=== PATIENT | female | born 1955 | race Caucasian/White ===

== ENCOUNTER 2020-12-21 15:04 | Outpatient (CLI) | payer MEDICARE, SELFPAY ==
--- NOTE | ~2020-12-21 | MM_ITS ---
EXAMINATION: MM screening heydi BI w matthew HISTORY: Screening mammogram TECHNIQUE: Craniocaudal and mediolateral oblique 3-D tomosynthesis images were obtained and synthetic 2-D images were generated. CAD analysis was submitted and interpreted. COMPARISON: 05/10/2019, 05/04/2018, 10/31/2015 bilateral digital screening mammogram examinations BREAST PARENCHYMAL COMPOSITION: The breasts are heterogeneously dense, which may obscure small masses . FINDINGS: Occasional benign calcifications. There is no evidence of suspicious mass, calcification, o r architectural distortion to suggest malignancy in either breast. There has been no suspicious inter erasmo change. IMPRESSION: 1. No mammographic evidence of malignancy. 2. Recommend routine screening mammography in one year. BI-RADS Category 2: Benign finding(s). Reviewed, dictated and finalized at location A.
== END 2020-12-21 15:05 | disposition home or self-care (01) ==
PROVIDERS: PCP Family Medicine; Visit Provider Obstetrics & Gynecology
DX: Z12.31 Encounter for screening mammogram for malignant neoplasm of breast (principal)
CPT/HCPCS: 77063; 77067

== ENCOUNTER 2021-02-15 03:09 | Day surgery (SDC) | payer MEDICARE, SELFPAY ==
[2021-02-01 13:39] VITALS: BMI 34.4
--- NOTE | 2021-02-15 08:23 | WPDANESEPPF ---
Anes - Initial Pre Proc Eval Procedure: Operation Date: 02/15/21 09:30 Proposed Procedures p Screening Colonoscopy - Horace Garner MD Date/Time: 02/15/21 08:23 Surgeon: Horace Garner MD Pre Op Diagnosis: family hx of colon ca Patient Data Age: 65 Gender: F Height: 1.63 m Weight: 91 kg Allergies Allergy/AdvReac Type Severity Reaction Status Date / Time No Known Allergies Allergy Verified 02/15/21 09:06 Home Medications Medication Instructions Recorded Confirmed Type quinapril 10 mg tablet 10 mg PO DAILY #90 tablet 05/07/20 02/01/21 Rx ergocalciferol (vitamin D2) 1,250 1,250 mcg PO WEEKLY #12 cap 12/13/20 02/01/21 Rx mcg (50,000 unit) capsule Saccharomyces boulardii 250 mg 250 mg PO BID 12/24/20 02/01/21 History capsule mometasone-formoterol HFA 200 2 puff INHALATION BID #1 device 01/17/21 02/01/21 Rx mcg-5 mcg/actuation aerosol inhaler albuterol sulfate 90 mcg/actuation 1 inh INHALATION Q4H PRN #8.5 g 01/18/21 02/01/21 Rx aerosol inhaler Patient hx anesthesia problems: none Family hx anesthesia problems: none PMFSH Past Medical History Medical History (Updated 02/15/21 @ 08:25 by Froylan Bee MD) Allergic rhinitis Asthma Family history of coronary artery disease GERD (gastroesophageal reflux disease) Hypertension Normal colonoscopy (~2013) Obesity (BMI 30-39.9) Smoker Tobacco abuse, in remission Surgical History Surgical History History of colposcopy History of esophagogastroduodenoscopy (EGD) [place] teeth removed Family History Family History Mother Carcinoma of colon Breast cancer Father Carcinoma of colon Lung cancer Other Hypertension Social History Social History Smoking status: Current some day smoker Tobacco type: cigarettes Second hand tobacco smoke exposure: No Alcohol intake: current Alcohol use details: rarely Substance use: never Substance use type: does not use Living arrangements: alone Gender identity (if verbalized by the patient): Female Spiritual care concerns: No Agree to blood products: No Anes - Eval Final PreProcedure Day of Procedure 02/15/21 08:23 Patient weight: obese Heart: regular rate and rhythm Lungs: clear to auscultation and normal air movement Airway: Mallampati scale class II Neurological: alert and oriented Last oral intake: >/= 8 hours ASA classification: III Emergent: no Anesthetic plan: proceed Anesthesia type and monitoring: general GIVS Informed Consent: The patient's anesthetic plan and its attendant risks and benefits were discussed with the patient/family/POA. Questions were solicited and answers provided to the satisfaction of the patient/family/POA.
[2021-02-15 09:07] VITALS: BP 149/76; PULSE 76; RESP 14; TEMP 36.1; O2SAT 99
[2021-02-15] MEDS: LACTATED RINGERS 1,000 ML 150 ML IV CONT (09:24)
--- NOTE | 2021-02-15 09:40 | WPDGICN ---
Assessment and Plan Assessment and plan (1) FH: colon cancer: Code(s): Z80.0 - Family history of malignant neoplasm of digestive organs Status: Acute Assessment and Plan: Patient has family history of colon cancer in both mother and father. Plan is for screening colonoscopy now in this should be considered at 5 year intervals in the future. GI Consult Note Consult date/time: 02/15/21 09:40 HPI: Mirtha Bajwa is a 65 year old female Presents for screening colonoscopy. Patient states that her current weight appetite bowel movements are normal. Patient denies abdominal pain. She has had no bleeding. Family history is significant both mother and father have had colon cancer. Patient presents today for screening examination last exam was 6 years ago. Review of Systems Review of Systems: All systems reviewed & are unremarkable except as noted in HPI and below PMFSH Past Medical History Medical History (Updated 02/15/21 @ 08:25 by Froylan Bee MD) Allergic rhinitis Asthma Family history of coronary artery disease GERD (gastroesophageal reflux disease) Hypertension Normal colonoscopy (~2013) Obesity (BMI 30-39.9) Smoker Tobacco abuse, in remission Surgical History Surgical History History of colposcopy History of esophagogastroduodenoscopy (EGD) [place] teeth removed Family History Family History Mother Carcinoma of colon Breast cancer Father Carcinoma of colon Lung cancer Other Hypertension Social History Social History Smoking status: Current some day smoker Tobacco type: cigarettes Second hand tobacco smoke exposure: No Alcohol intake: current Alcohol use details: rarely Substance use: never Substance use type: does not use Living arrangements: alone Gender identity (if verbalized by the patient): Female Spiritual care concerns: No Agree to blood products: No Meds Home Medications and Allergies Home Medications Medication Instructions Recorded Confirmed Type quinapril 10 mg tablet 10 mg PO DAILY #90 tablet 05/07/20 02/15/21 Rx ergocalciferol (vitamin D2) 1,250 1,250 mcg PO WEEKLY #12 cap 12/13/20 02/15/21 Rx mcg (50,000 unit) capsule Saccharomyces boulardii 250 mg 250 mg PO BID 12/24/20 02/15/21 History capsule mometasone-formoterol HFA 200 2 puff INHALATION BID #1 device 01/17/21 02/15/21 Rx mcg-5 mcg/actuation aerosol inhaler albuterol sulfate 90 mcg/actuation 1 inh INHALATION Q4H PRN #8.5 g 01/18/21 02/15/21 Rx aerosol inhaler Allergies Allergy/AdvReac Type Severity Reaction Status Date / Time No Known Allergies Allergy Verified 02/15/21 09:06 Vital Signs Vital Signs - 24 hr 02/15/21 09:07 Temperature 97.0 F L Pulse Rate 76 Respiratory Rate 14 Blood Pressure 149/76 H Pulse Oximetry 99 Exam Narrative: Physical exam reveals patient be alert. Vital signs stable. HEENT exam is unremarkable. Patient is anicteric. Lungs are clear to auscultation and percussion. Heart is without murmur or extra sounds. Abdominal exam bowel sounds are present soft nontender with no organomegaly. Digital external rectal exam is normal.
[2021-02-15 10:11] VITALS: BP 91/64; PULSE 85; RESP 19; O2SAT 98
[2021-02-15 10:21] VITALS: BP 120/77; PULSE 86; RESP 20; O2SAT 100
[2021-02-15 10:31] VITALS: BP 140/83; PULSE 79; RESP 19; O2SAT 99
== END 2021-02-15 10:47 | disposition home or self-care (01) ==
PROVIDERS: PCP Family Medicine; Visit Provider Internal Medicine Gastroenterology
PROC: 0DJD8ZZ Inspection of Lower Intestinal Tract, Via Natural or Artificial Opening Endoscopic (ICD-10-PCS; CPT 45378; principal; 2021-02-15 09:30)
DX: Z12.11 Encounter for screening for malignant neoplasm of colon (principal); K57.30 Diverticulosis of large intestine without perforation or abscess without bleeding; K64.8 Other hemorrhoids; K21.9 Gastro-esophageal reflux disease without esophagitis; J45.909 Unspecified asthma, uncomplicated; I10 Essential (primary) hypertension; E66.9 Obesity, unspecified; F17.201 Nicotine dependence, unspecified, in remission; Z80.0 Family history of malignant neoplasm of digestive organs
CPT/HCPCS: G0105; J2704; J7120

== ENCOUNTER 2021-06-05 09:48 | Outpatient (CLI) | payer MEDICARE, SELFPAY ==
--- NOTE | ~2021-06-05 | DEXA_ITS ---
Bone Density Report Name: Mirtha Bajwa Age: 65 Sex: Female Ethnicity: White Date of : 1955 Indication: postmenopausal; parental hip fracture; height loss; Referring Provider: NORMA ARBOLEDA Study: Bone densitometry was performed. Exam Date: June 05, 2021 Accession number: [id number] Bone Density: Region BMD T-score Z-score Classification AP Spine (L1-L4) 0.965 -0.7 1.2 Normal Femoral Neck (Left) 0.669 -1.6 0.0 Osteopenia Total Hip (Left) 0.799 -1.2 0.2 Osteopenia Total Hip Bilateral Avg 0.784 -1.3 0.1 Osteopenia Femoral Neck (Right) 0.678 -1.5 0.1 Osteopenia Total Hip (Right) 0.768 -1.4 -0.1 Osteopenia World Health Organization criteria for BMD impression classify patients as: Normal (T-score at or above -1.0), Osteopenia (T-score between -1.0 and -2.5), or Osteoporosis (T-score at or below -2.5). 10-year Fracture Risk(1): Major Osteoporotic Fracture 15% Hip Fracture 1.7% Reported Risk Factors: [place] (), Neck BMD=0.669, BMI=38.8, parental fracture (1) FRAX(R) Version 3.08. Fracture probability calculated for an untreated patient. Fracture probability may be lower if the patient has received treatment. Previous Exams: Region Exam Age BMD T-score BMD Change BMD Change Date g/cm2 vs Baseline vs Previous AP Spine(L1-L4) 06/05/2021 65 0.965 -0.7 -0.116(-10.8%) -0.076(-7.3%)# 05/20/2019 63 1.041 -0.1 -0.040(-3.7%)# 0.021(2.1%) 11/08/2015 60 1.020 -0.2 -0.061(-5.6%)# -0.061(-5.6%)# 02/18/2010 54 1.081 0.3 Total Hip(Left) 06/05/2021 65 0.799 -1.2 -0.083(-9.4%)# -0.046(-5.5%)# 05/20/2019 63 0.845 -0.8 -0.037(-4.2%)# -0.032(-3.7%)* 11/08/2015 60 0.878 -0.5 -0.004(-0.5%)# -0.004(-0.5%)# 02/18/2010 54 0.882 -0.5 Total Hip(Right) 06/05/2021 65 0.768 -1.4 -0.049(-6.0%)# -0.049(-6.0%)# 05/20/2019 63 0.816 -1.0 0.000(0.0%)# -0.021(-2.5%) 11/08/2015 60 0.837 -0.9 0.021(2.5%)# 0.021(2.5%)# 02/18/2010 54 0.816 -1.0 *Denotes significance at 95% confidence level, LSC for AP Spine = 0.022 g/cm2, LSC for Total Hip = 0.027 g/cm2 Clinical Information Provided by Patient: Parent has had a hip fracture Has used the following medications: Vitamin D Patient maximum height was 66 Menopause Age: 50 No regular weight bearing exercise Drinks caffeinated beverages Onset of menses at age 10 Number of children 0 Impression: The patient has low bone mass,
== END 2021-06-05 09:49 | disposition home or self-care (01) ==
LOC: ANHIMG 09:50
PROVIDERS: PCP Family Medicine; Visit Provider Obstetrics & Gynecology
DX: Z78.0 Asymptomatic menopausal state (principal); M85.852 Other specified disorders of bone density and structure, left thigh; M85.851 Other specified disorders of bone density and structure, right thigh
CPT/HCPCS: 77080

== ENCOUNTER 2022-03-13 14:23 | Outpatient (CLI) | payer MEDICARE, SELFPAY ==
--- NOTE | ~2022-03-13 | MM_ITS ---
EXAMINATION: MM screening heydi BI w matthew HISTORY: Screening mammogram, family history of breast cancer in her mother. TECHNIQUE: Craniocaudal and mediolateral oblique 3-D tomosynthesis images were obtained and synthetic 2-D images were generated. CAD analysis was submitted and interpreted. COMPARISON: 12/21/2020, 05/10/2019, 05/04/2018 BREAST PARENCHYMAL COMPOSITION: The breasts are heterogeneously dense, which may obscure small masses . FINDINGS: Scattered benign-appearing calcifications are present. There is no suspicious mass, calcifi cation, or architectural distortion to suggest malignancy in either breast. There has been no suspici ous interval change. IMPRESSION: 1. No mammographic evidence of malignancy. 2. Recommend routine screening mammography in one year. BI-RADS Category 2: Benign finding(s). Reviewed, dictated and finalized at location A.
== END 2022-03-13 14:24 | disposition home or self-care (01) ==
PROVIDERS: PCP Family Medicine; Visit Provider Physician Assistant
DX: Z12.31 Encounter for screening mammogram for malignant neoplasm of breast (principal)
CPT/HCPCS: 77063; 77067

== ENCOUNTER → 2022-07-11 09:43 | Outpatient (CLI) | payer MEDICARE, SELFPAY ==
--- NOTE | ~2022-07-11 | XR_ITS ---
Lumbosacral Spine: AP and lateral views Clinical History: Pain Findings: The normal lordotic curve is maintained. No fracture identified. Grade 1 anterolisthesis of L4 over L5 measures 6 mm. There is advanced degenerative disc narrowing at L4-L5 and L5-S1. There ar e diffuse facet joint degenerative changes in the lumbar spine. The sacroiliac joints are normally ou tlined. Impression: 6 mm anterolisthesis of L4 over L5. Additional degenerative changes, as above. Reviewed, dictated and finalized at location M. [facility] [employer] Impression: 6 mm anterolisthesis of L4 over L5. Additional degenerative changes, as above.
--- NOTE | ~2022-07-11 | XR_ITS ---
AP view of the pelvis and AP and lateral views of the right hip Clinical history: Pain Findings: No acute fracture or dislocation is seen. There is moderate degenerative change of the righ t hip joint with joint space narrowing and mild osteophyte formation. Left hip joint space is preserv ed. Soft tissues are unremarkable. Impression: Moderate left hip joint osteoarthritis. Reviewed, dictated and finalized at location . [employer] Impression: Moderate left hip joint osteoarthritis.
== END ==
PROVIDERS: PCP Family Medicine; Visit Provider Physician Assistant Medical
DX: M16.0 Bilateral primary osteoarthritis of hip (principal)
CPT/HCPCS: 72100; 73502

== ENCOUNTER 2023-09-11 13:18 | Outpatient (CLI) | payer MEDICARE, SELFPAY ==
--- NOTE | ~2023-09-11 | DEXA_ITS ---
Bone Density Report Name: JAHAIRA GARCIA Age: 68 Sex: Female Ethnicity: White Date of : 1955 Indication: osteopenia; parental hip fracture; height loss; postmenopausal Referring Provider: LINCOLN HOOKER Study: Bone densitometry was performed. Exam Date: September 11, 2023 Accession number: [id number] Bone Density: Region BMD T-score Z-score Classification AP Spine(L1-L4) 1.046 0.0 2.1 Normal Femoral Neck (Left) 0.633 -1.9 -0.1 Osteopenia Total Hip (Left) 0.799 -1.2 0.3 Osteopenia World Health Organization criteria for BMD impression classify patients as: Normal (T-score at or above -1.0), Osteopenia (T-score between -1.0 and -2.5), or Osteoporosis (T-score at or below -2.5). 10-year Fracture Risk(1): Major Osteoporotic Fracture 16% Hip Fracture 3.7% Reported Risk Factors: [place] (), Neck BMD=0.633, BMI=39.0, parental fracture (1) FRAX(R) Version 3.08. Fracture probability calculated for an untreated patient. Fracture probability may be lower if the patient has received treatment. Previous Exams: Region Exam Age BMD T-score BMD Change BMD Change Date g/cm2 vs Baseline vs Previous Total Hip(Left) 09/11/2023 68 0.799 -1.2 -0.079 (-9.0%) -0.001 (-0.1%) 06/05/2021 65 0.799 -1.2 -0.079 (-8.9%) -0.046 (-5.5%) 05/20/2019 63 0.845 -0.8 -0.032 (-3.7%) -0.032 (-3.7%) 11/08/2015 60 0.878 -0.5 *Denotes significance at 95% confidence level, LSC for Total Hip = 0.027 g/cm2 # Denotes dissimilar scan types or analysis methods Clinical Information Provided by Patient: Parent has had a hip fracture Has used the following medications: Vitamin D, Calcium Patient maximum height was 66 Menopause Age: 50 Does not regularly consume dairy products Drinks caffeinated beverages Onset of menses at age 10 Number of children 0 Missed period for more than 6 months in a row Impression: The patient has low bone mass, based on the Left Femoral Neck T-score. The patient has an estimated ten-year risk of hip fracture of 3.7% and an estimated ten-year risk of major fracture of 16%, based on the WHO FRAX algorithm. The patient has risk factors, including: parental hip fracture. No significant bone loss was observed. Discussion: BONE DENSITY IS LOW AT ONE OR MORE SKELETAL SITES. THE PATIENT'S BMD AND CLINICAL RISK FACTORS CONTRIBUTE TO THIS PATIENT'S INCREASED RISK OF FRACTURE. This patient's lowest T-score is low at one or more skeletal sites. It meets the World Health Organization's (WHO) criteria for ?low bone mass? (T-score between -1.0 and -2.5).
== END 2023-09-11 13:19 | disposition home or self-care (01) ==
LOC: ANHIMG 13:20
PROVIDERS: PCP Family Medicine; Visit Provider Physician Assistant
DX: Z78.0 Asymptomatic menopausal state (principal); M85.852 Other specified disorders of bone density and structure, left thigh
CPT/HCPCS: 77080

== ENCOUNTER 2024-01-29 12:42 | Outpatient (CLI) | payer MEDICARE, SELFPAY ==
--- NOTE | ~2024-01-29 | XR_ITS ---
Clinical Indication: Cough PA and lateral views of the chest: Comparison: 07/15/2017 Findings: The lungs are clear, without evidence of focal consolidation or pleural effusion. Cardiome diastinal silhouette is within normal limits. Bones and soft tissues are unremarkable. Impression: Normal chest. Reviewed, dictated and finalized at location . Impression: Normal chest.
== END 2024-01-29 12:43 ==
LOC: MICIMG 12:45
PROVIDERS: PCP Family Medicine; Visit Provider Physician Assistant Medical
DX: R05.9 Cough, unspecified (principal)
CPT/HCPCS: 71046

== ENCOUNTER 2024-02-23 09:26 | Outpatient (CLI) | payer MEDICARE, SELFPAY ==
--- NOTE | ~2024-02-23 | MM_ITS ---
EXAMINATION: MM screening heydi BI w matthew HISTORY: Screening TECHNIQUE: Craniocaudal and mediolateral oblique 3-D tomosynthesis images were obtained and synthetic 2-D images were generated. CAD analysis was submitted and interpreted. COMPARISON: Comparison to multiple prior studies sequentially, with oldest reviewed study dated 11/07. BREAST PARENCHYMAL COMPOSITION: Dense: The breasts are heterogeneously dense, which may obscure small masses FINDINGS: There is no evidence of suspicious mass, calcification, or architectural distortion to sugg est malignancy in either breast. There has been no suspicious interval change. IMPRESSION: 1. No mammographic evidence of malignancy. 2. Recommend routine screening mammography in one year. BI-RADS Category 1: Negative Reviewed, dictated and finalized at location B.
== END 2024-02-23 09:27 | disposition home or self-care (01) ==
LOC: ANHIMG 09:27
PROVIDERS: PCP Family Medicine; Visit Provider Family Medicine
DX: Z12.31 Encounter for screening mammogram for malignant neoplasm of breast (principal)
CPT/HCPCS: 77063; 77067

== ENCOUNTER 2024-04-21 09:15 | Outpatient (CLI) | payer MEDICARE, SELFPAY ==
[2024-04-21 10:50] LABS: Influenza A QL RT-PCR Negative (Negative); Influenza B QL RT-PCR Negative (Negative); RSV RNA, RT-PCR Negative (Negative); SARS-CoV-2 RNA PCR Negative (Negative)
== END 2024-04-21 09:16 | disposition home or self-care (01) ==
LOC: ANHLAB 09:21
PROVIDERS: PCP Family Medicine; Visit Provider Family Medicine
DX: J06.9 Acute upper respiratory infection, unspecified (principal); R05.9 Cough, unspecified; Z20.822 Contact with and (suspected) exposure to COVID-19
CPT/HCPCS: 87637

== ENCOUNTER 2024-06-13 10:02 | Outpatient (CLI) | payer MEDICARE, SELFPAY ==
--- NOTE | 2024-07-11 09:49 | P.SLEEP_ITS ---
Sleep Study Date of Study: 06/13/24 Ordering Provider: Lucie Mathis MD Interpreting Physician: Melissa Gutierrez DO Sleep Study Type: Split Polysomnogram Height: 1.63 m Weight: 102.058 kg Body Mass Index: 38.6 Neck Circumference (inches): 17 [place]: 7 Reason for Sleep Study snoring Sleep History The patient is a 68-year-old female that had a sleep study ordered by our care physician for evaluation of sleep apnea. The patient denies awakening from sleep short of breath. She denies awakening at night with heartburn, belching or. She frequently snores loudly enough that others complain. She denies having trouble sleeping when she has a cold. She denies waking up gasping for air throughout night. She denies having breathing problems at night observed by herself or others. She denies sweating excessively night. She denies having heart palpitations or irregular heartbeats during the night. She occasionally falls asleep during the day but never while driving. She denies sleep paralysis, cataplexy and hypnagogic / hypnopompic hallucinations. She denies having trouble at school or work due to sleepiness. She denies feeling afraid of going to sleep. She denies having nightmares. She occasionally remembers her dreams. She denies having thoughts racing through her mind. She denies feeling sad, depressed or anxious. She denies having muscular tension. She denies noticing parts of her body jerk. She denies kicking during the night. She denies having crawling and aching feelings in her legs and denies having leg pain during the night. She denies grinding her teeth during sleep and denies awakening with morning jaw pain. She is frequently bothered by pain during the day but never awakened by pain during the night. She frequently wakes up feeling stiff in the morning. She denies waking up with sore or achy muscles. She frequently wakes up with pain in the neck, spine or other joints. She goes to bed around 10:00 p.m. both weekdays and weekends. It takes her 15- 30 minutes to fall asleep. She wakes up once throughout the night to urinate and is able to fall back asleep immediately. She wakes up at 7:00 a.m. on both weekdays and weekends. She typically gets 6-8 hours of sleep per night. The amount of time she stays in bed after waking up is variable. She currently lives alone. She denies consuming any caffeinated beverages within 2 hours of bedtime. She denies engaging in physical exercise before bedtime. She will read and watch television before falling asleep. She will occasionally take naps in the afternoon or the evening but they are not refreshing. She consumes 2 cups of coffee per day. She quit smoking cigarettes several years ago. She denies any alcohol or recreational drug use. [facility]LY [facility] Past Medical History Medical History Vitamin D deficiency Smoker Obesity (BMI 30-39.9) Family history of coronary artery disease Tobacco abuse, in remission Allergic rhinitis Asthma Normal colonoscopy (~2013) GERD (gastroesophageal reflux disease) Hypertension Surgical History Surgical History History of colposcopy [place] teeth removed History of esophagogastroduodenoscopy (EGD) Family History Family History Mother Carcinoma of colon Breast cancer Father Carcinoma of colon Lung cancer Other Hypertension Social History Social History Smoking status: Former smoker Tobacco type: cigarettes Second hand tobacco smoke exposure: No Alcohol intake: current Alcohol use details: rarely Substance use: never Substance use type: does not use Lack of Transportation: No Lack of Food: Never True Current Housing: I Have Housing Concerned About Future Housing: No Difficulty Paying Gas/Electric Bills: No Difficulty Paying for Meds: No Currently Unemployed: No Education: Master's Degree or Higher Difficulty w/ Childcare or Family Care: No Living arrangements: with family Occupation/Education: retired Gender identity (if verbalized by the patient): Female Sexual Orientation (if Verbalized by the Patient): Straight or Heterosexual Spiritual care concerns: No Agree to blood products: No Medications Home Medications ?Medication ?Instructions ?Recorded ?Confirmed ?Type albuterol sulfate 90 mcg/actuation 1 inh inhalation Q4H PRN shortness 03/19/22 04/21/24 Rx aerosol inhaler (ProAir HFA) of breath or wheezing #8.5 grams cetirizine 10 mg tablet (Allergy 10 mg PO DAILY PRN 03/19/22 04/21/24 History Relief (cetirizine)) fluticasone propionate 50 1 spray intranasal DAILY 03/19/22 04/21/24 History mcg/actuation nasal spray,suspension (Flonase Allergy Relief) cyclobenzaprine 10 mg tablet 10 mg PO BID PRN muscle spasm #60 11/03/22 04/21/24 Rx tabs omeprazole 40 mg capsule,delayed 40 mg PO DAILY PRN reflux symptoms 01/05/23 04/21/24 Rx release #90 caps tramadol 50 mg tablet 50 mg PO Q8H PRN pain #180 tabs 06/01/23 04/21/24 Rx lisinopril 20 mg tablet 20 mg PO DAILY #30 tabs 10/14/23 04/21/24 Rx amlodipine 5 mg tablet 5 mg PO DAILY #30 tabs 12/23/23 04/21/24 Rx benzonatate 100 mg capsule 100 mg PO TID PRN cough #30 caps 01/29/24 04/21/24 Rx ergocalciferol (vitamin D2) 1,250 1,250 mcg PO WEEKLY #12 caps 04/11/24 04/21/24 Rx mcg (50,000 unit) capsule mometasone-formoterol HFA 200 2 puff inhalation BID #1 device 04/21/24 04/21/24 Rx mcg-5 mcg/actuation aerosol inhaler (Dulera) diclofenac sodium 50 mg 50 mg PO BID #90 tabs 06/13/24 Rx tablet,delayed release Sleep Procedure A full night split study using the [employer] multi-channel system recorded the standard physiologic parameters including EEG, EOG, submentalis EMG, anterior tibialis EMG, EKG, body position, nasal and oral airflow using nasal pressure sensor and thermistor.? Respiratory parameters of chest and abdominal movements were recorded with Respiratory Inductance Plethysmography belts. Oxygen saturation was recorded by pulse oximetry. Video monitoring was also performed. Sleep stages, periodic limb movements, and EEG arousals were scored in 30 second epochs according to the criteria of the AASM Scoring Manual. The Apnea-Hypopnea Index was calculated using CMS guidelines for definition of hypopnea with 4% O2 desaturations while scoring respiratory events. Sleep Architecture During the diagnostic portion of the study, the total recording time was 243.8 minutes. The total sleep time was 130.0 minutes. Sleep latency was 56.3 minutes.? REM latency was 152.5 minutes. Sleep Efficiency was 53.3%. The patient had 10 awakenings for an awakening index of 4.6. Wake after sleep onset time was 57.5 minutes. The patient spent 12.5 minutes, 9.6% of total sleep time in Stage N1. The patient spent 84.0 minutes, 64.6% in Stage N2. The patient spent 19.5 minutes, 15.0% in Stage N3. The patient spent 14.0 minutes, 10.8% in Stage REM sleep. At 02:29:58 AM the patient was placed on PAP treatment and was titrated at pressures ranging from 5 cm H20 up to 11 cm H20. During the treatment portion of the study, the total recording time was 233.5 minutes.? The total sleep time was 193.5 minutes. Sleep latency was 20.5 minutes. REM latency was 68.0 minutes. Sleep Efficiency was 82.9%. Wake after Sleep Onset time was 19.5 minutes. The patient spent 19.0 minutes, 9.8% of total sleep time in Stage N1. The patient spent 133.0 minutes, 68.7% in Stage N2. The patient spent 19.5 minutes, 10.1% in Stage N3. The patient spent 22.0 minutes, 11.4% in Stage REM. Respiratory Analysis During the diagnostic portion of the study, the patient had 10 hypopneas and 7 obstructive apneas for an overall Apnea Hypopnea Index of 7.8 events per hour. The REM Apnea Hypopnea Index was 4.3. The NREM Apnea Hypopnea Index was 8.8. The patient had a Central Apnea Hypopnea Index of 0. There was no evidence of Krzysztof-Gamez Respirations. During the treatment portion of the study, the patient had 11 hypopneas, 5 obstructive apneas, 1 mixed apnea, and 2 central apneas for an overall Apnea Hypopnea Index of 5.9 events per hour. The REM Apnea Hypopnea Index was 13.6. The NREM Apnea Hypopnea Index was 4.9. The patient had a Central Apnea Hypopnea Index of 0.6. There was no evidence of Krzysztof-Gamez Respirations. The patient was started on CPAP 5 cm H2O and titrated to CPAP 11 cm H2O due to obstructive apneas and hypopneas. The patient was able fall asleep starting on CPAP 5 cm H2O. The patient was able to achieve REM sleep starting on CPAP 6 cm H2O. On CPAP 6 cm H2O, the patient spent 59 minutes in NREM and 2.5 minutes in REM with 4 hypopneas, resulting in an AHI of 3.9. The patient had a sleep efficiency of 98.4% on this pressure setting. Arousals During the diagnostic portion of the study, there were a total of 61 arousals for an arousal index of 28.2.? There were 18 respiratory arousals for an index of 8.3. There were 10 periodic limb movement arousals for an index of 4.6.? There were 10 isolated limb movement arousals for an index of 4.6. There were 23 spontaneous arousals for an index of 10.6. During the treatment portion of the study, there were a total of 89 arousals for an index of 27.6.? There were 28 respiratory arousals for an index of 8.7. There were 5 periodic limb movement arousals for an index of 1.6.? There were 4 isolated limb movement arousals for an index of 1.2. There were 53 spontaneous arousals for an index of 16.4. Periodic Limb Movements During the diagnostic portion of the study, the patient had 20 isolated limb movements with an index of 9.2. The patient had 36 periodic limb movements with an index of 16.6. The patient had a total of 56 limb movements with a total limb movement index of 25.8. During the treatment portion of the study, the patient had 7 isolated limb movements with an index of 2.2. The patient had 29 periodic limb movements with an index of 9.0. The patient had a total of 36 limb movements with a total limb movement index of 11.2. Oximetry Data During the diagnostic portion of the study, the patient had an average oxygen saturation of 96.3% in wake with a minimum oxygen saturation of 92% and a maximum oxygen saturation of 99%. The patient had an average oxygen saturation of 94.1% in sleep with a minimum oxygen saturation of 80.0% and a maximum oxygen saturation of 98.0%. The patient had 19 oxygen desaturations resulting in an Oxygen Desaturation Index of 8.8. The patient spent 1.1 minutes, 0.5% of total sleep time with an oxygen saturation less than 88%. During the treatment portion of the study, the patient had an average oxygen saturation of 96.9% in wake with a minimum oxygen saturation of 92.0% and a maximum oxygen saturation of 99.0%. The patient had an average oxygen saturation of 95.1% in sleep with a minimum oxygen saturation of 88.0% and a maximum oxygen saturation of 99.0%. The patient had 20 oxygen desaturations resulting in an Oxygen Desaturation Index of 6.2. The patient spent 0.1 minutes of total sleep time with an oxygen saturation less than 88%. Snoring Profile Mild to moderate snoring was present in the baseline portion of the study. Cardiac Profile The EKG lead showed normal sinus rhythm. No arrhythmias or premature beats were seen. During the diagnostic portion of the study, the average pulse rate was 69.0 bpm.? The minimum pulse rate was 60.0 bpm. The maximum pulse rate was 87.0 bpm. During the treatment portion of the study, the average pulse rate was 63.3 bpm.? The minimum pulse rate was 55.0 bpm. The maximum pulse rate was 84.0 bpm. EEG Profile No signs of seizure activity seen. Assessment and Plan Assessment and Plan (1) MITCH (obstructive sleep apnea): Code(s): G47.33 - Obstructive sleep apnea (adult) (pediatric) Status: Acute Assessment and Plan: In the baseline portion of the study, the patient had an overall AHI of 7.8 with desaturation down to 80%. This is consistent with mild sleep apnea. Due to the patient's hypertension, she qualifies for treatment. The patient was started on CPAP 5 cm H2O and titrated to CPAP 11 cm H2O due to obstructive apneas and hypopneas. We were able to find a pressure setting that resolved the patient's sleep apnea. I recommend that the patient be prescribed Resmed CPAP 6 cm H2O, size medium Resmed AirTouch F20 full face mask, CPAP filters/tubing and heated humidity. This should be used with all episodes of sleep.? Compliance should be reviewed within 31-90 days of starting therapy for usage greater than 4 hours per night greater than 70% of the nights. The patient should be asked about symptoms such as?excessive daytime sleepiness, quality of sleep, decreased nocturia, increased?mental functioning such as memory, mood, and concentration. Data The data obtained during this sleep study is adequate for interpretation. Certification This sleep study has been reviewed by a board certified sleep medicine physician.
[2024-07-11 09:51] VITALS: BMI 38.6
== END 2024-06-14 07:17 | disposition home or self-care (01) ==
LOC: ANHCSM 10:11
PROVIDERS: PCP Family Medicine; Visit Provider Family Medicine
DX: G47.33 Obstructive sleep apnea (adult) (pediatric) (principal)
CPT/HCPCS: 95811

== ENCOUNTER 2025-03-22 08:40 | Outpatient (CLI) | payer MEDICARE, SELFPAY ==
--- OUTSIDE RECORDS SUMMARY | 2025-03-21 02:40 | XMS_ITS ---
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 Name Role Phone Lucie Mathis Primary Care Provider Rob Smith Unavailable [phone] DavidHeenaHu Unavailable [phone] REASON FOR VISIT SCIT - Traditional Schedule Allergy Immunotherapy Medications Medication SIG (Take, Route, Frequency, Duration) Notes Start Date End Date Status DICLOFENAC sodium 50 mg 1 tab(s) orally bid Not-Taki ng FLUTICASONE NASAL 50 mcg/inh 2 spray(s) in each nostril BID; Duration: 30 day(s) LAST REFILL/PATIENT NEEDS TO CALL FOR APPOINTMENT BEFORE NEXT REFILL NEEDED/THANKS Not-Taking LISINOPRIL 20 mg 1 tab(s) orally once a day; Duration: 30 day(s) Not-Taking AMLODIPINE 5 mg 1 tab(s) orally once a day Not-Taking VITAMIN D2 50,000 intl units 1 cap(s) orally once a week; Duration: 30 day(s) Not-Taking amLODIPine Besylate 10 MG 1 tablet Oral Once a day; Duration: 90 days Active Diclofenac Sodium 50 MG Oral; Duration: 90 Days Active Lisinopril 20 MG Oral; Duration: 90 Days Active Cetirizine HCl 10 MG 1 tablet Orally Once a day; Duration: 30 day(s) 09/06/2024 Active SIT (CLUSTER) VARIABLE PER SCHEDULE SC PER SCHEDULE; Duration: TO BE DETERMINED *Please review for potential replacement for e-prescription and drug interaction check* 10/22/2021 Active Calcium & Magnesium Carbonates Active Fiber ([place] Dextrin) - as directed Orally Active Fish Oil Active Albuterol Sulfate HFA 108 (90 Base) MCG/ACT 2 puff(s) inhaled every 6 hours Active D3-50 1250 mcg 1 cap(s) orally once a week; Duration: 60 day(s) Active Dulera 100-5 MCG/ACT as directed Inhalation Active Fluticasone Propionate 50 MCG/ACT 2 sprays in each nostril Nasally Twice a day; Duration: 30 days Active SIT (TRADITIONAL) variable per schedule per schedule; Duration: 999 days Active NASAL WASHES N/A as directed intranasally as needed; Duration: 30 Active CETIRIZINE 10 mg 1 tab(s) orally once a day; Duration: 30 days Active EpiPen 2-Alan 0.3 mg as directed intramuscularly once; Duration: 30 days Active AEROCHAMBER MDI SPACER - MOUTHPIECE (ADULT) N/A As directed PO Per asthma action plan; Duration: 30 day(s) Active ALBUTEROL (EQV-PROAIR HFA) 90 mcg/inh 2 puff(s) inhaled every 6 hours; Duration: 30 day(s) Active Prevnar 20 0.5 ML as directed Intramuscular once; Duration: 1 days 09/06/2024 Active DULERA (MOMETASONE FUROATE/FORMOTERO L FUMARATE DIHYDRATE) 100 mcg/5 mcg 2 puffs inhaled BID PRN Active Nasacort Allergy 24HR *Please review and pick correct strength-formulat ion from Whisk options. If intended option is not shown, discontinue and re-order from Quick Search* Not-Taking QUINAPRIL 10 mg 1 tab(s) orally once a day; Duration: 30 day(s) Not-Taking Quinapril HCl 10 MG 1 tab(s) orally once a day; Duration: 30 day(s) Not-Taking Loratadine 10 MG 1 tab(s) orally once a day Not-Taking LORATADINE 10 mg 1 tab(s) orally once a day Not-Taking PROAIR HFA 90 MCG/INH 2 PUFF(S) INHALED EVERY 6 HOURS *Please review for potential replacement for e-prescription and drug interaction check* Not-Taking AUVI -Q 0.3 mg as directed intramuscularly once; Duration: 30 days Not-Taking NASACORT Not-Taking ALBUTEROL 90 mcg/inh 2 puff(s) inhaled every 6 hours Not-Taking OMEPRAZOLE 40 mg 1 cap(s) orally once a day; Duration: 30 day(s) Not-Taking Encounters Encounter Location Date Provider Diagnosis [facility] [address] [place] [address] 03/21/2025 Hu Henrandez Allergic rhinitis du e to pollen J30.1 ; Other allergic rhinitis J30.89 ; Allergic rhinitis due to animal (cat) (dog) hair and dander J30.81 and Other chronic allergic conjunctivitis H10.45 Assessments Encounter Date Diagnosis (ICD Code) Assessment Notes Treatment Notes Treatment Clinical Notes Section Notes 03/21/2025 Allergic rhinitis due to pollen (ICD-10 - J30.1) 03/21/2025 Other allergic rhinitis (ICD-10 - J30.89) 03/21/2025 Allergic rhinitis due to animal (cat) (dog) hair and dander (ICD-10 - J30.81) 03/21/2025 Other chronic allergic conjunctivitis (ICD-10 - H10.45) Plan Of Treatment Next Appt Details Follow Up: 1 Week, Reason: Provider Name:Lorelei saldana, 04/18/2025 10:30:00 AM, [address], [address], [place], [address], Progress Notes * Sherry BAJWAOB: [birth year] (69 yo F)Acc No.[id number]:03/21/2025 SCIT-Aeroallergen Patient: Mirtha HUGHES Provider: Alexei Hernandez MD :[id number] A ge:69 Y S ex:Female Date:03/21/2025 Address:[address] [place], [place] [id number] Pcp:Lucie Mathis Subjective: * Chief Complaints: * S CIT - Traditional Schedule Allergy Immunotherapy * HPI: * Introduction: The patient is here for scheduled immunotherapy. Please see the attached specialty form regarding the specifics of the administration of these vaccines. As per our protocol, they must undergo a screening health questionnaire (medication changes, reaction(s) to last immunotherapy dose(s), current health status, ACT (if appropriate), self-injectable epinephrine on patient(?) and peak flow (if appropriate)). Also, the patient must wait in our office for 30 minutes after receiving the vaccine(s). Furthermore, every patient must have an epinephrine pen (self-injectable) with them at the time of administration--and carry if for the following 1.5 hours after they leave our office. The patient must also have taken their antihistamine the day of the injection, preferably 2 hours prior. The consent form for SCIT (subcutaneous immunotherapy) is on file. * Medical History: * Surgical History: * Hospitalization/Major Diagno stic Procedure: * Medications: T akingEpiPen 2-Alan 0.3 mg kit as directed intramuscularly once EpiPen 2-Alan 0.3 mg kit as directed intramuscularly once ALBUTEROL (EQV-PROAIR HFA) 90 mcg/inh aerosol 2 puff(s) inhaled every 6 hours AEROCHAMBER MDI SPACER - MOUTHPIECE (ADULT) N/A Spacer for MDI use As directed PO Per asthma action plan DULERA (MOMETASONE FUROATE/FORMOTEROL FUMARATE DIHYDRATE) 100 mcg/5 mcg HFA 2 puffs inhaled BID PRN CETIRIZINE 10 mg tablet 1 tab(s) orally once a day NASAL WASHES N/A 1 quart of sterilized tap water or distilled water, 1 tsp NaCl, 1 pinch of baking soda as directed intranasally as needed SIT (TRADITIONAL) variable see record per schedule per schedule Fluticasone Propionate 50 MCG/ACT Suspension 2 sprays in each nostril Nasally Twice a day Dulera 100-5 MCG/ACT Aerosol as directed Inhalation Calcium & Magnesium Carbonates Fish Oil Fiber ([place] Dextrin) - Powder as directed Orally D3-50 1250 mcg capsule 1 cap(s) orally once a week Albuterol Sulfate HFA 108 (90 Base) MCG/ACT Aerosol Solution 2 puff(s) inhaled every 6 hours SIT (CLUSTER) VARIABLE SEE RECORD PER SCHEDULE SC PER SCHEDULE , Notes to Pharmacist: *Please review for potential replacement for e-prescription and drug interaction check*Cetirizine HCl 10 MG Tablet 1 tablet Orally Once a day amLODIPine Besylate 10 MG Tablet 1 tablet Oral Once a day Lisinopril 20 MG Tablet Oral Diclofenac Sodium 50 MG Tablet Delayed Release Oral Prevnar 20 0.5 ML Suspension Prefilled Syringe as directed Intramuscular once Taking EpiPen 2-Aaln 0.3 mg kit as directed intramuscularly once Taking EpiPen 2-Alan 0.3 mg kit as directed intramuscularly once Taking ALBUTEROL (EQV-PROAIR HFA) 90 mcg/inh aerosol 2 puff(s) inhaled every 6 hours Taking AEROCHAMBER MDI SPACER - MOUTHPIECE (ADULT) N/A Spacer for MDI use As directed PO Per asthma action plan Taking DULERA (MOMETASONE FUROATE/FORMOTEROL FUMARATE DIHYDRATE) 100 mcg/5 mcg HFA 2 puffs inhaled BID PRN Taking CETIRIZINE 10 mg tablet 1 tab(s) orally once a day Taking NASAL WASHES N/A 1 quart of sterilized tap water or distilled water, 1 tsp NaCl, 1 pinch of baking soda as directed intranasally as needed Taking SIT (TRADITIONAL) variable see record per schedule per schedule Taking Fluticasone Propionate 50 MCG/ACT Suspension 2 sprays in each nostril Nasally Twice a day Taking Dulera 100-5 MCG/ACT Aerosol as directed Inhalation Taking Calcium & Magnesium Carbonates Taking Fish Oil Taking Fiber ([place] Dextrin) - Powder as directed Orally Taking D3-50 1250 mcg capsule 1 cap(s) orally once a week Taking Albuterol Sulfate HFA 108 (90 Base) MCG/ACT Aerosol Solution 2 puff(s) inhaled every 6 hours Taking SIT (CLUSTER) VARIABLE SEE RECORD PER SCHEDULE SC PER SCHEDULE , Notes to Pharmacist: *Please review for potential replacement for e-prescription and drug interaction check*Taking Cetirizine HCl 10 MG Tablet 1 tablet Orally Once a day Taking amLODIPine Besylate 10 MG Tablet 1 tablet Oral Once a day Taking Lisinopril 20 MG Tablet Oral Taking Diclofenac Sodium 50 MG Tablet Delayed Release Oral Taking Prevnar 20 0.5 ML Suspension Prefilled Syringe as directed Intramuscular once Not- Taking/PRNFLUTICASONE NASAL 50 mcg/inh spray 2 spray(s) in each nostril BID , Notes to Pharmacist: LAST REFILL/PATIENT NEEDS TO CALL FOR APPOINTMENT BEFORE NEXT REFILL NEEDED/THANKSDICLOFENAC sodium 50 mg delayed release tablet 1 tab(s) orally bid AMLODIPINE 5 mg tablet 1 tab(s) orally once a day LISINOPRIL 20 mg tablet 1 tab(s) orally once a day VITAMIN D2 50,000 intl units capsule 1 cap(s) orally once a week ALBUTEROL 90 mcg/inh aerosol 2 puff(s) inhaled every 6 hours OMEPRAZOLE 40 mg delayed release capsule 1 cap(s) orally once a day AUVI -Q 0.3 mg kit as directed intramuscularly once PROAIR HFA 90 MCG/INH AEROSOL 2 PUFF(S) INHALED EVERY 6 HOURS , Notes to Pharmacist: *Please review for potential replacement for e-prescription and drug interaction check*NASACORT LORATADINE 10 mg tablet 1 tab(s) orally once a day QUINAPRIL 10 mg tablet 1 tab(s) orally once a day Nasacort Allergy 24HR , Notes to Pharmacist: *Please review and pick correct strength-formulation from Whisk options. If intended option is not shown, discontinue and re-order from Quick Search*Loratadine 10 MG Tablet 1 tab(s) orally once a day Quinapril HCl 10 MG Tablet 1 tab(s) orally once a day Not-Taking/PRN FLUTICASONE NASAL 50 mcg/inh spray 2 spray(s) in each nostril BID , Notes to Pharmacist: LAST REFILL/PATIENT NEEDS TO CALL FOR APPOINTMENT BEFORE NEXT REFILL NEEDED/THANKSNot-Taking/PRN DICLOFENAC sodium 50 mg delayed release tablet 1 tab(s) orally bid Not-Taking/PRN AMLODIPINE 5 mg tablet 1 tab(s) orally once a day Not-Taking/PRN LISINOPRIL 20 mg tablet 1 tab(s) orally once a day Not-Taking/PRN VITAMIN D2 50,000 intl units capsule 1 cap(s) orally once a week Not-Taking/PRN ALBUTEROL 90 mcg/inh aerosol 2 puff(s) inhaled every 6 hours Not-Taking/PRN OMEPRAZOLE 40 mg delayed release capsule 1 cap(s) orally once a day Not-Taking/PRN AUVI -Q 0.3 mg kit as directed intramuscularly once Not- Taking/PRN PROAIR HFA 90 MCG/INH AEROSOL 2 PUFF(S) INHALED EVERY 6 HOURS , Notes to Pharmacist: *Please review for potential replacement for e-prescription and drug interaction check*Not-Taking/PRN NASACORT Not-Taking/PRN LORATADINE 10 mg tablet 1 tab(s) orally once a day Not-Taking/PRN QUINAPRIL 10 mg tablet 1 tab(s) orally once a day Not-Taking/PRN Nasacort Allergy 24HR , Notes to Pharmacist: *Please review and pick correct strength-formulation from Medispan options. If intended option is not shown, discontinue and re-order from Quick Search*Not-Taking/PRN Loratadine 10 MG Tablet 1 tab(s) orally once a day Not-Taking/PRN Quinapril HCl 10 MG Tablet 1 tab(s) orally once a day Objective: * Vitals: Assessment: * Assessment: 1. A llergic rhinitis due to pollen - J30.1 (Primary) 2 . O ther allergic rhinitis - J30.89 3 . A llergic rhinitis due to animal (cat) (dog) hair and dander - J30.81 4 . O ther chronic allergic conjunctivitis - H10.45 Plan: * Treatment: * Procedure Codes: 9 5117 IMMUNOTHERAPY INJECTIONS * Follow Up: 1 Week * Billing Information: * Visit Code: * Procedure Codes: 21631 IMMUNOTHERAPY INJECTIONS. * Sign off status: Completed true * Provider: Alexei Hernandez MD Date: 0 03/21/2025 Generated for Cyril lazo/Samir/Jhonathanitting on: 0 03/22/2025 09:11 AM CDT History and Physical Notes * HPI (History of Present Illness) Category Sub-Category Detail Notes Category Not es *Introduction The patient is here for scheduled immunotherapy. Please see the attached specialty form regarding the specifics of the administration of these vaccines. As per our protocol, they must undergo a screening health questionnaire (medication changes, reaction(s) to last immunotherapy dose(s), current health status, ACT (if appropriate), self-injectable epinephrine on patient(?) and peak flow (if appropriate)). Also, the patient must wait in our office for 30 minutes after receiving the vaccine(s). Furthermore, every patient must have an epinephrine pen (self-injectable) with them at the time of administration--and carry if for the following 1.5 hours after they leave our office. The patient must also have taken their antihistamine the day of the injection, preferably 2 hours prior. The consent form for SCIT (subcutaneous immunotherapy) is on file.
--- NOTE | ~2025-03-22 | MM_ITS ---
EXAMINATION: MM screening heydi BI w matthew HISTORY: Screening TECHNIQUE: Craniocaudal and mediolateral oblique 3-D tomosynthesis images were obtained and synthetic 2-D images were generated. CAD analysis was submitted and interpreted. COMPARISON: Comparison to multiple prior studies sequentially, with oldest reviewed study dated , 05/04/2018 BREAST PARENCHYMAL COMPOSITION: The breasts are heterogeneously dense, which may obscure small masses. FINDINGS: There is no evidence of suspicious mass, calcification, or architectural distortion to suggest malignancy in either breast. IMPRESSION: 1. No mammographic evidence of malignancy. 2. Recommend routine screening mammography in one year. BI-RADS Category 1: Negative Reviewed, dictated and finalized at location B.
--- OUTSIDE RECORDS SUMMARY | 2025-03-22 09:12 | XMS_ITS | Clinical Summary ---
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 Gender Identity Not on file Sexual Orientation Not on file Plan of Treatment Health Maintenance Due Date Last Done Comments Hepatitis C Virus (HCV) Screening 1955 TdaP Immunization 1955 Cologuard 1998 Colonoscopy 1998 Colorectal Cancer Screening 1998 Immunochemical Fecal Occult Blood 1998 Pneumococcal Immunization (5 0+ years) (1 of 1 - PCV) 2003 Zoster Immunization (1 of 2) 2003 SARS-COV-2 Immunization ( - 2023- season) 2024 Influenza Immunization (#1) 2025 Respiratory Syncytial Virus (RSV) Immunization (Adult) (1 - 1-dose 75+ series) 2028 Hepatitis B Immunization Aged Out No longer eligible based on patient's age to complete this topic Human Papillomavirus (HPV) Immunization Aged Out No longer eligible b ased on patient's age to complete this topic Meningococcal Immunization (ACWY) Aged Out No longer eligible based on patient's age to complete this topic Rotavirus Immunization Aged Out No lo nger eligible based on patient's age to complete this topic
--- OUTSIDE RECORDS SUMMARY | 2025-03-22 09:12 | XMS_ITS | Patient Health Record ---
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 Name Role Phone Lucie Mathis Primary Care Provider Rob Smith Unavailable [phone] Hu Hernandez Unavailable [phone] Allergies No Known Allergies Results Component Value Reference Range Notes -Pneumococcal Ab (23 Serotyp e) Reviewed date:08/03/2024 07:43:55 AM Interpretation:Abnormal Performing Lab:[facility], [address] [place] [address], [facility], [place], [place] [id number], Phone - [phone], Director - PhDBCNeil Notes/Report: Pneumo Ab Type 1* 0.6 >1.3 ug/mL Pneumo Ab Type 3* 0.2 >1.3 ug/mL Pneumo Ab Type 4* <0.1 >1.3 ug/mL Pneumo Ab Type 8* 1.4 >1.3 ug/mL Pneumo Ab Type 9 (9N)* 0.2 >1.3 ug/mL Pneumo Ab Type 12 (12F)* <0.1 >1.3 ug/mL Pneumo Ab Type 14* 0.2 >1.3 ug/mL Pneumo Ab Type 17 (17F)* 1.1 >1.3 ug/mL Pneumo Ab Type 19 (19F)* 0.4 >1.3 ug/mL Pneumo Ab Type 2* 1.6 >1.3 ug/mL Pneumo Ab Type 20* <0.2 >1.3 ug/mL Pneumo Ab Type 22 (22F)* 0.2 >1.3 ug/mL Pneumo Ab Type 23 (23F)* 0.3 >1.3 ug/mL Pneumo Ab Type 26 (6B)* 0.1 >1.3 ug/mL Pneumo Ab Type 34 (10A)* 0.7 >1.3 ug/mL Pneumo Ab Type 43 (11A)* 0.4 >1.3 ug/mL Pneumo Ab Type 5* 0.5 >1.3 ug/mL Pneumo Ab Type 51 (7F)* 0.2 >1.3 ug/mL Pneumo Ab Type 54 (15B)* 4.4 >1.3 ug/mL Pneumo Ab Type 56 (18C)* 0.2 >1.3 ug/mL Pneumo Ab Type 57 (19A)* 0.4 >1.3 ug/mL Pneumo Ab Type 68 (9V)* 1.5 >1.3 ug/mL Pneumo Ab Type 70 (33F)* 1.4 >1.3 ug/mL *This test was developed and its performance characteristics determined by [facility]. It has not been cleared or approved by the U.S. Food and Drug Administration. FLAG Interpretation: A = Abnormal, H = High, L = Low Reason For Referral No Information Medications Medication SIG (Take, Route, Frequency, Duration) Notes Start Date End Date Status Calcium & Magnesium Carbonates Active Nasacort Allergy 24HR *Please review and pick correct strength-formulat ion from [facility] options. If intended option is not shown, discontinue and re-order from Quick Search* Not-Taking Dulera 100-5 MCG/ACT as directed Inhalation Active QUINAPRIL 10 mg 1 tab(s) orally once a day; Duration: 30 day(s) Not-Taking Fiber ([place] Dextrin) - as directed Orally Active Quinapril HCl 10 MG 1 tab(s) orally once a day; Duration: 30 day(s) Not-Taking Fish Oil Active Loratadine 10 MG 1 tab(s) orally once a day Not-Taking PROAIR HFA 90 MCG/INH 2 PUFF(S) INHALED EVERY 6 HOURS *Please review for potential replacement for e-prescription and drug interaction check* Not-Taking AUVI -Q 0.3 mg as directed intramuscularly once; Duration: 30 days Not-Taking Fluticasone Propionate 50 MCG/ACT 2 sprays in each nostril Nasally Twice a day; Duration: 30 days Active LORATADINE 10 mg 1 tab(s) orally once a day Not-Taking SIT (TRADITIONAL) variable per schedule per schedule; Duration: 999 days Active NASACORT Not-Taking Albuterol Sulfate HFA 108 (90 Base) MCG/ACT 2 puff(s) inhaled every 6 hours Active D3-50 1250 mcg 1 cap(s) orally once a week; Duration: 60 day(s) Active Prevnar 20 0.5 ML as directed Intramuscular once; Duration: 1 days 09/06/2024 Active Cetirizine HCl 10 MG 1 tablet Orally Once a day; Duration: 30 day(s) 09/06/2024 Active SIT (CLUSTER) VARIABLE PER SCHEDULE SC PER SCHEDULE; Duration: TO BE DETERMINED *Please review for potential replacement for e-prescription and drug interaction check* 10/22/2021 Active DICLOFENAC sodium 50 mg 1 tab(s) orally bid Not-Taki ng FLUTICASONE NASAL 50 mcg/inh 2 spray(s) in each nostril BID; Duration: 30 day(s) LAST REFILL/PATIENT NEEDS TO CALL FOR APPOINTMENT BEFORE NEXT REFILL NEEDED/THANKS Not-Taking LISINOPRIL 20 mg 1 tab(s) orally once a day; Duration: 30 day(s) Not-Taking EpiPen 2-Alan 0.3 mg as directed intramuscularly once; Duration: 30 days Active AMLODIPINE 5 mg 1 tab(s) orally once a day Not-Taking amLODIPine Besylate 10 MG 1 tablet Oral Once a day; Duration: 90 days Active Diclofenac Sodium 50 MG Oral; Duration: 90 Days Active Lisinopril 20 MG Oral; Duration: 90 Days Active NASAL WASHES N/A as directed intranasally as needed; Duration: 30 Active AEROCHAMBER MDI SPACER - MOUTHPIECE (ADULT) N/A As directed PO Per asthma action plan; Duration: 30 day(s) Active ALBUTEROL 90 mcg/inh 2 puff(s) inhaled every 6 hours Not-Taking EPIPEN 2-ALAN 0.3 mg as directed intramuscularly once; Duration: 30 days Active ALBUTEROL (EQV-PROAIR HFA) 90 mcg/inh 2 puff(s) inhaled every 6 hours; Duration: 30 day(s) Active VITAMIN D2 50,000 intl units 1 cap(s) orally once a week; Duration: 30 day(s) Not-Taking CETIRIZINE 10 mg 1 tab(s) orally once a day; Duration: 30 days Active DULERA (MOMETASONE FUROATE/FORMOTERO L FUMARATE DIHYDRATE) 100 mcg/5 mcg 2 puffs inhaled BID PRN Active OMEPRAZOLE 40 mg 1 cap(s) orally once a day; Duration: 30 day(s) Not-Taking Immunizations Vaccine Route Administration Date Status Comme nts NOC Pneumovax 23 IM Intramuscular 05/21/2023 Administered NOC Pneumovax 23 IM Intramuscular 05/10/2024 Administered Covid 19 (Pfizer) Unknown 09/07/2020 Administered Covid 19 (Pfizer) Unknown 04/28/2021 Administered FLUZONE High-Dose Quadrivalent Unknown 04/28/2021 Administered NOC Prevnar 20 IM Intramuscular 09/15/2024 Administered Social History Tobacco Use: Social History Observation Description Date Details (start date - stop date) Former Smoker 06/13/1970 - 06/13/1994 Smoking Smart Form: Question Answer Notes Are you a: former smoker When did you start smoking? 06/13/1970 When did you stop smoking? 06/13/1994 Problems Problem Type SNOMED Code ICD Code Onset Dates Problem Status W/U Status Risk Notes Problem Shortness of breath (458574869) Shortness of breath (R06.02) Active confirmed Problem Chronic allergic conjunctivitis (71598748) Other chronic allergic conjunctivitis (H10.45) Active confirmed Problem Allergic rhinitis caused by pollen (disorder) (06205399) Allergic rhinitis due to pollen (J30.1) Active confirmed Problem Allergic rhinitis caused by animal hair and dander (773702892420319) Allergic rhinitis due to animal (cat) (dog) hair and dander (J30.81) Active confirmed Problem Allergic rhinitis (18636587) Other allergic rhinitis (J30.89) Active confirmed Problem Chronic sinusitis (20590285) Chronic sinusitis, unspecified (J32.9) Active confirmed Problem Allergic rhinitis caused by pollen (disorder) (52140717) Allergic rhinitis due to pollen (J30.1) Active confirmed Problem Allergic rhinitis caused by animal hair and dander (283652320678002) Allergic rhinitis due to animal (cat) (dog) hair and dander (J30.81) Active confirmed Problem Allergic rhinitis (07401281) Other allergic rhinitis (J30.89) Active confirmed Problem Chronic allergic conjunctivitis (87902335) Other chronic allergic conjunctivitis (H10.45) Active confirmed Problem Chronic sinusitis (85057920) Other chronic sinusitis (J32.8) Active confirmed Problem Essential hypertension (63031841) Essential (primary) hypertension (I10) Active confirmed Problem Vitamin D deficiency (38364767) Vitamin D deficiency, unspecified (E55.9) Active confirmed Vital Signs Blood pressure diastolic 78 mm Hg 09/06/2024 Oximetry 98 % 09/06/2024 Height 66 in 09/06/2024 Blood pressure systolic 129 mm Hg 09/06/2024 Weight 232.8 lbs 09/06/2024 BMI 37.57 kg/m2 09/06/2024 Encounters Encounter Location Date Provider Diagnosis [facility] [address] [place] [phone] 03/21/2025 Hu Hernandez Allergic rhinitis du e to pollen J30.1 ; Other allergic rhinitis J30.89 ; Allergic rhinitis due to animal (cat) (dog) hair and dander J30.81 and Other chronic allergic conjunctivitis H10.45 [facility] [address] [place] [phone] 03/07/2025 Hu Hernandez Allergic rhinitis du e to pollen J30.1 ; Other allergic rhinitis J30.89 ; Allergic rhinitis due to animal (cat) (dog) hair and dander J30.81 and Other chronic allergic conjunctivitis H10.[address] [phone] 02/21/2025 Hu Hernandez Allergic rhinitis du e to pollen J30.1 ; Other allergic rhinitis J30.89 ; Allergic rhinitis due to animal (cat) (dog) hair and dander J30.81 and Other chronic allergic conjunctivitis H10.[address] [address] 02/07/2025 Hu Hernandez Allergic rhinitis du e to pollen J30.1 ; Other allergic rhinitis J30.89 ; Allergic rhinitis due to animal (cat) (dog) hair and dander J30.81 and Other chronic allergic conjunctivitis H10.45 [facility] [address] [place] [address] [email or web address] [address] [phone] 01/24/2025 Hu Hernandez Allergic rhinitis du e to pollen J30.1 ; Other allergic rhinitis J30.89 ; Allergic rhinitis due to animal (cat) (dog) hair and dander J30.81 and Other chronic allergic conjunctivitis H10.[address] [address] 01/10/2025 Hu Hernandez Allergic rhinitis du e to pollen J30.1 ; Other allergic rhinitis J30.89 ; Allergic rhinitis due to animal (cat) (dog) hair and dander J30.81 and Other chronic allergic conjunctivitis H10.45 [facility] [address] [place] [address] [email or web address] [address] [phone] 12/27/2024 Hu Hernandez Allergic rhinitis du e to pollen J30.1 ; Other allergic rhinitis J30.89 ; Allergic rhinitis due to animal (cat) (dog) hair and dander J30.81 and Other chronic allergic conjunctivitis H10.45 [facility] [address] [place] [address] [email or web address] [address] [phone] 12/06/2024 Hu Hernandez Allergic rhinitis du e to pollen J30.1 ; Other allergic rhinitis J30.89 ; Allergic rhinitis due to animal (cat) (dog) hair and dander J30.81 and Other chronic allergic conjunctivitis H10.45 [facility] [address] [place] [phone] 11/15/2024 Hu Hernandez Allergic rhinitis du e to pollen J30.1 ; Other allergic rhinitis J30.89 ; Allergic rhinitis due to animal (cat) (dog) hair and dander J30.81 and Other chronic allergic conjunctivitis H10.45 [facility] [address] [place] [address] [email or web address] [address] [phone] 11/01/2024 uH Hernandez Allergic rhinitis du e to pollen J30.1 ; Other allergic rhinitis J30.89 ; Allergic rhinitis due to animal (cat) (dog) hair and dander J30.81 and Other chronic allergic conjunctivitis H10.45 [facility] [address] [facility] [address] [address] 10/05/2024 Uh David Allergic rhinitis du e to pollen J30.1 ; Other allergic rhinitis J30.89 ; Allergic rhinitis due to animal (cat) (dog) hair and dander J30.81 and Other chronic allergic conjunctivitis H10.45 [facility] [address] [place] [address] [place] [phone] 09/22/2024 Hu David Allergic rhinitis du e to pollen J30.1 ; Other allergic rhinitis J30.89 ; Allergic rhinitis due to animal (cat) (dog) hair and dander J30.81 and Other chronic allergic conjunctivitis H10.45 [facility] [address] [place] [address] [place] [phone] 09/13/2024 Hu David Allergic rhinitis du e to pollen J30.1 ; Other allergic rhinitis J30.89 ; Allergic rhinitis due to animal (cat) (dog) hair and dander J30.81 and Other chronic allergic conjunctivitis H10.45 [facility] [address] [place] [address] [place] [phone] 08/23/2024 Hu David Allergic rhinitis du e to pollen J30.1 ; Other allergic rhinitis J30.89 ; Allergic rhinitis due to animal (cat) (dog) hair and dander J30.81 and Other chronic allergic conjunctivitis H10.45 [facility] [address] [place] [address] [place] [phone] 08/09/2024 Hu David Allergic rhinitis du e to pollen J30.1 ; Other allergic rhinitis J30.89 ; Allergic rhinitis due to animal (cat) (dog) hair and dander J30.81 and Other chronic allergic conjunctivitis H10.45 [facility] [address] [place] [address] [place] [phone] 07/27/2024 Husravanthi Hernandez Allergic rhinitis du e to pollen J30.1 ; Other allergic rhinitis J30.89 ; Allergic rhinitis due to animal (cat) (dog) hair and dander J30.81 and Other chronic allergic conjunctivitis H10.45 [facility] [address] [place] [address] [place] [phone] 06/28/2024 Hu Hernandez Allergic rhinitis du e to pollen J30.1 ; Other allergic rhinitis J30.89 ; Allergic rhinitis due to animal (cat) (dog) hair and dander J30.81 and Other chronic allergic conjunctivitis H10.45 [facility] [address] [place] [phone] 06/16/2024 Hu David Allergic rhinitis du e to pollen J30.1 ; Other allergic rhinitis J30.89 ; Allergic rhinitis due to animal (cat) (dog) hair and dander J30.81 and Other chronic allergic conjunctivitis H10.45 [facility] [address] [place] [phone] 05/31/2024 Hu Hernandez Allergic rhinitis du e to pollen J30.1 ; Other allergic rhinitis J30.89 ; Allergic rhinitis due to animal (cat) (dog) hair and dander J30.81 and Other chronic allergic conjunctivitis H10.45 [facility] [address] [place] [phone] 05/18/2024 Hu Hernandez Allergic rhinitis du e to pollen J30.1 ; Other allergic rhinitis J30.89 ; Allergic rhinitis due to animal (cat) (dog) hair and dander J30.81 and Other chronic allergic conjunctivitis H10.45 [facility] [address] [place] [phone] 05/03/2024 Hu Hernandez Allergic rhinitis du e to pollen J30.1 ; Other allergic rhinitis J30.89 ; Allergic rhinitis due to animal (cat) (dog) hair and dander J30.81 and Other chronic allergic conjunctivitis H10.45 [facility] [address] [place] [phone] 03/30/2024 Hu Hernandez Allergic rhinitis du e to pollen J30.1 ; Other allergic rhinitis J30.89 ; Allergic rhinitis due to animal (cat) (dog) hair and dander J30.81 and Other chronic allergic conjunctivitis H10.45 [facility] [address] [place] [phone] 09/06/2024 Rob Fletcher Allergic rhinitis du e to pollen J30.1 ; Allergic rhinitis due to animal (cat) (dog) hair and dander J30.81 ; Other allergic rhinitis J30.89 ; Other chronic allergic conjunctivitis H10.45 ; Other chronic sinusitis J32.8 ; Vitamin D deficiency, unspecified E55.9 ; Shortness of breath R06.02 and Essential (primary) hypertension I10 [address] [address] 04/12/2024 Rob Fletcher Allergic rhinitis du e to pollen J30.1 ; Allergic rhinitis due to animal (cat) (dog) hair and dander J30.81 ; Other allergic rhinitis J30.89 ; Other chronic allergic conjunctivitis H10.45 ; Other chronic sinusitis J32.8 ; Vitamin D deficiency, unspecified E55.9 ; Shortness of breath R06.02 and Essential (primary) hypertension I10 [address] [address] 09/15/2024 Hu Hernandez Encounter for immunization Z23 ; Encounter for antibody response examination Z01.84 and Other chronic sinusitis J32.[address] [phone] 05/10/2024 Hu Hernandez Encounter for immunization Z23 ; Encounter for antibody response examination Z01.84 and Other chronic sinusitis J32.[address] [address] 06/28/2024 Rob Fletcher Chronic sinusitis, unspecified J32.9 Assessments Encounter Date Diagnosis (ICD Code) Assessment Notes Treatment Notes Treatment Clinical Notes Section Notes 03/30/2024 Allergic rhinitis due to pollen (ICD-10 - J30.1) 04/12/2024 Allergic rhinitis due to pollen (ICD-10 - J30.1) Veena clearly suffers from atopic disease based upon our skin testing and clinical history. Accordingly, we have introduced a new, aggressive medication regimen, discussed nasal washes and allergy-specific avoidance measures. She continues on SCIT with clear improvement. Procedure tolerated today without issue. Currently dosign q 2 weeks. Keep AIE on hand 2 hours after SCIT. Continue to premedicate with Zyrtec. No interval sinus infections since starting. Return per [place] for SCIT and 6 months for interval evaulation and management 04/12/2024 Allergic rhinitis due to animal (cat) (dog) hair and dander (ICD-10 - J30.81) Follow allergen avoidance, meds and continue SCIT as an adjunctive treatment to current regimen 05/03/2024 Allergic rhinitis due to pollen (ICD-10 - J30.1) 05/10/2024 Encounter for immunization (ICD-10 - Z23) 05/10/2024 Encounter for antibody response examination (ICD-10 - Z01.84) 05/18/2024 Allergic rhinitis due to pollen (ICD-10 - J30.1) 05/31/2024 Allergic rhinitis due to pollen (ICD-10 - J30.1) 06/16/2024 Allergic rhinitis due to pollen (ICD-10 - J30.1) 06/28/2024 Chronic sinusitis, unspecified (ICD-10 - J32.9) 07/27/2024 Allergic rhinitis due to pollen (ICD-10 - J30.1) 08/09/2024 Allergic rhinitis due to pollen (ICD-10 - J30.1) 08/23/2024 Allergic rhinitis due to pollen (ICD-10 - J30.1) 09/06/2024 Allergic rhinitis due to pollen (ICD-10 - J30.1) Veena clearly suffers from atopic disease based upon our skin testing and clinical history. Accordingly, we have introduced a new, aggressive medication regimen, discussed nasal washes and allergy-specific avoidance measures. She continues on SCIT with clear improvement. Procedure tolerated today without issue. Keep AIE on hand 2 hours after SCIT. Continue to premedicate with Zyrtec. No interval sinus infections since starting. Return per [place] for SCIT and 3 months for E&M 09/06/2024 Allergic rhinitis due to animal (cat) (dog) hair and dander (ICD-10 - J30.81) Follow allergen avoidance, meds and continue SCIT as an adjunctive treatment to current regimen 09/13/2024 Allergic rhinitis due to pollen (ICD-10 - J30.1) 09/15/2024 Encounter for immunization (ICD-10 - Z23) 09/15/2024 Encounter for antibody response examination (ICD-10 - Z01.84) 09/22/2024 Allergic rhinitis due to pollen (ICD-10 - J30.1) 10/05/2024 Allergic rhinitis due to pollen (ICD-10 - J30.1) 11/01/2024 Allergic rhinitis due to pollen (ICD-10 - J30.1) 11/15/2024 Allergic rhinitis due to pollen (ICD-10 - J30.1) 12/06/2024 Allergic rhinitis due to pollen (ICD-10 - J30.1) 12/27/2024 Allergic rhinitis due to pollen (ICD-10 - J30.1) 01/24/2025 Allergic rhinitis due to pollen (ICD-10 - J30.1) 02/07/2025 Allergic rhinitis due to pollen (ICD-10 - J30.1) 02/21/2025 Allergic rhinitis due to pollen (ICD-10 - J30.1) 03/07/2025 Allergic rhinitis due to pollen (ICD-10 - J30.1) 03/21/2025 Allergic rhinitis due to pollen (ICD-10 - J30.1) 06/28/2024 Allergic rhinitis due to pollen (ICD-10 - J30.1) 01/10/2025 Allergic rhinitis due to pollen (ICD-10 - J30.1) 01/10/2025 Other allergic rhinitis (ICD-10 - J30.89) 06/28/2024 Other allergic rhinitis (ICD-10 - J30.89) 03/21/2025 Other allergic rhinitis (ICD-10 - J30.89) 03/07/2025 Other allergic rhinitis (ICD-10 - J30.89) 02/21/2025 Other allergic rhinitis (ICD-10 - J30.89) 02/07/2025 Other allergic rhinitis (ICD-10 - J30.89) 01/24/2025 Other allergic rhinitis (ICD-10 - J30.89) 12/27/2024 Other allergic rhinitis (ICD-10 - J30.89) 12/06/2024 Other allergic rhinitis (ICD-10 - J30.89) 11/15/2024 Other allergic rhinitis (ICD-10 - J30.89) 11/01/2024 Other allergic rhinitis (ICD-10 - J30.89) 10/05/2024 Other allergic rhinitis (ICD-10 - J30.89) 09/22/2024 Other allergic rhinitis (ICD-10 - J30.89) 09/15/2024 Other chronic sinusitis (ICD-10 - J32.8) 09/13/2024 Other allergic rhinitis (ICD-10 - J30.89) 09/06/2024 Other allergic rhinitis (ICD-10 - J30.89) Follow allergen avoidance, meds and continue SCIT as an adjunctive treatment to current regimen 08/23/2024 Other allergic rhinitis (ICD-10 - J30.89) 08/09/2024 Other allergic rhinitis (ICD-10 - J30.89) 07/27/2024 Other allergic rhinitis (ICD-10 - J30.89) 05/03/2024 Other allergic rhinitis (ICD-10 - J30.89) 06/16/2024 Other allergic rhinitis (ICD-10 - J30.89) 05/31/2024 Other allergic rhinitis (ICD-10 - J30.89) 05/18/2024 Other allergic rhinitis (ICD-10 - J30.89) 05/10/2024 Other chronic sinusitis (ICD-10 - J32.8) 04/12/2024 Other allergic rhinitis (ICD-10 - J30.89) Follow allergen avoidance, meds and continue SCIT as an adjunctive treatment to current regimen 03/30/2024 Other allergic rhinitis (ICD-10 - J30.89) 03/30/2024 Allergic rhinitis due to animal (cat) (dog) hair and dander (ICD-10 - J30.81) 04/12/2024 Other chronic allergic conjunctivitis (ICD-10 - H10.45) Given ocular signs and symptoms I encouraged allergy avoidance measures and meds as above. If symptoms persist, continue adding additional medications including intraocular antihistamine/mast cell stabilizer, PRN and consider SCIT as an adjunctive measure 05/03/2024 Allergic rhinitis due to animal (cat) (dog) hair and dander (ICD-10 - J30.81) 05/18/2024 Allergic rhinitis due to animal (cat) (dog) hair and dander (ICD-10 - J30.81) 05/31/2024 Allergic rhinitis due to animal (cat) (dog) hair and dander (ICD-10 - J30.81) 06/16/2024 Allergic rhinitis due to animal (cat) (dog) hair and dander (ICD-10 - J30.81) 07/27/2024 Allergic rhinitis due to animal (cat) (dog) hair and dander (ICD-10 - J30.81) 08/09/2024 Allergic rhinitis due to animal (cat) (dog) hair and dander (ICD-10 - J30.81) 08/23/2024 Allergic rhinitis due to animal (cat) (dog) hair and dander (ICD-10 - J30.81) 09/13/2024 Allergic rhinitis due to animal (cat) (dog) hair and dander (ICD-10 - J30.81) 09/06/2024 Other chronic allergic conjunctivitis (ICD-10 - H10.45) Given ocular signs and symptoms I encouraged allergy avoidance measures and meds as above. If symptoms persist, continue adding additional medications including intraocular antihistamine/mast cell stabilizer, PRN and consider SCIT as an adjunctive measure 09/22/2024 Allergic rhinitis due to animal (cat) (dog) hair and dander (ICD-10 - J30.81) 10/05/2024 Allergic rhinitis due to animal (cat) (dog) hair and dander (ICD-10 - J30.81) 11/01/2024 Allergic rhinitis due to animal (cat) (dog) hair and dander (ICD-10 - J30.81) 11/15/2024 Allergic rhinitis due to animal (cat) (dog) hair and dander (ICD-10 - J30.81) 12/06/2024 Allergic rhinitis due to animal (cat) (dog) hair and dander (ICD-10 - J30.81) 12/27/2024 Allergic rhinitis due to animal (cat) (dog) hair and dander (ICD-10 - J30.81) 01/24/2025 Allergic rhinitis due to animal (cat) (dog) hair and dander (ICD-10 - J30.81) 02/07/2025 Allergic rhinitis due to animal (cat) (dog) hair and dander (ICD-10 - J30.81) 02/21/2025 Allergic rhinitis due to animal (cat) (dog) hair and dander (ICD-10 - J30.81) 03/07/2025 Allergic rhinitis due to animal (cat) (dog) hair and dander (ICD-10 - J30.81) 03/21/2025 Allergic rhinitis due to animal (cat) (dog) hair and dander (ICD-10 - J30.81) 06/28/2024 Allergic rhinitis due to animal (cat) (dog) hair and dander (ICD-10 - J30.81) 01/10/2025 Allergic rhinitis due to animal (cat) (dog) hair and dander (ICD-10 - J30.81) 01/10/2025 Other chronic allergic conjunctivitis (ICD-10 - H10.45) 06/28/2024 Other chronic allergic conjunctivitis (ICD-10 - H10.45) 03/21/2025 Other chronic allergic conjunctivitis (ICD-10 - H10.45) 03/07/2025 Other chronic allergic conjunctivitis (ICD-10 - H10.45) 02/21/2025 Other chronic allergic conjunctivitis (ICD-10 - H10.45) 02/07/2025 Other chronic allergic conjunctivitis (ICD-10 - H10.45) 01/24/2025 Other chronic allergic conjunctivitis (ICD-10 - H10.45) 12/27/2024 Other chronic allergic conjunctivitis (ICD-10 - H10.45) 12/06/2024 Other chronic allergic conjunctivitis (ICD-10 - H10.45) 11/15/2024 Other chronic allergic conjunctivitis (ICD-10 - H10.45) 11/01/2024 Other chronic allergic conjunctivitis (ICD-10 - H10.45) 10/05/2024 Other chronic allergic conjunctivitis (ICD-10 - H10.45) 09/22/2024 Other chronic allergic conjunctivitis (ICD-10 - H10.45) 09/13/2024 Other chronic allergic conjunctivitis (ICD-10 - H10.45) 09/06/2024 Other chronic sinusitis (ICD-10 - J32.8) Recurrent sinus infections typically leading to bronchitis and treated with Levaquin. Modified PIDD work-up performed last visit showing low vitamin D. That said, Strep penumo titer did not return. Continues on Vitamin D supplementation per Dr. Mathis. Jovan pneumo bear with minimal protect s/p 1 Prevnar and 1 Pneumovax. She has obtained repeat Pneumovax with repeat titer showing increased protection at 2 to 5/23 serotypes. At this point, plan on obtaining Prevnar 20 with repeat titer 4-6 weeks after. Rx given today. That said, history is starting to look like JASON. May want to consider SQIG treatment depending on response 08/23/2024 Other chronic allergic conjunctivitis (ICD-10 - H10.45) 08/09/2024 Other chronic allergic conjunctivitis (ICD-10 - H10.45) 07/27/2024 Other chronic allergic conjunctivitis (ICD-10 - H10.45) 06/16/2024 Other chronic allergic conjunctivitis (ICD-10 - H10.45) 05/31/2024 Other chronic allergic conjunctivitis (ICD-10 - H10.45) 05/18/2024 Other chronic allergic conjunctivitis (ICD-10 - H10.45) 04/12/2024 Other chronic sinusitis (ICD-10 - J32.8) Recurrent sinus infections typically leading to bronchitis and treated with Levaquin. Moddified PIDD work-up perfromed last visit showing low vitamin D. That said, Strep penumo titer did not return. Continues on Vitamin D supplementation per Dr. Mathis. Jovan pneumo titswapnil with minimal protect s/p 1 Prevnar and 1 Pneumovax. Plan to obtain repeat Pneumovax. Will plan on rechecking 4-6 weeks after obtaining. Plan on obtaining next week 05/03/2024 Other chronic allergic conjunctivitis (ICD-10 - H10.45) 03/30/2024 Other chronic allergic conjunctivitis (ICD-10 - H10.45) 04/12/2024 Vitamin D deficiency, unspecified (ICD-10 - E55.9) Managed by PCP 09/06/2024 Vitamin D deficiency, unspecified (ICD-10 - E55.9) Managed by PCP 09/06/2024 Shortness of breath (ICD-10 - R06.02) Noted SOB and cough in relation to upper and lower airway infections. During these times will start Dulera 2 puffs BID. Also has THA on hand she only uses during illness. She has never required oral steroids but will frequently get Levaquin with benefit. Spriometry at initial visit was essentially normal. Plan to continue PRN Dulera during illness. Use wtih spacer use. Consider increasing Dulera to daily if THA use increases to twice a week 04/12/2024 Shortness of breath (ICD-10 - R06.02) Noted SOB and cough in relation to upper and lower airway infections. During these times will start Dulera 2 puffs BID. Also has THA on hand she only uses during illness. She has never required oral steroids but will frequently get Levaquin with benefit. Spriometry at initial visit was essentially normal. Plan to continue PRN Dulera during illness. Use wtih spacer use. Consider increasing Dulera to daily if THA use increases to twice a week 04/12/2024 Essential (primary) hypertension (ICD-10 - I10) BP elevated today without symptoms of urgency or emergency. Continue serial checks and follow-up with PCP 09/06/2024 Essential (primary) hypertension (ICD-10 - I10) BP elevated today without symptoms of urgency or emergency. Continue serial checks and follow-up with PCP 04/12/2024 Other 09/06/2024 Other Plan Of Treatment Next Appt Details Provider Name:Lorelei saldana, 04/18/2025 10:30:00 AM, 2022 [facility], [address], [address], Insurance Providers Payer Name Payer Address Payer Phone Subscriber Number Group Number Insured Name Patient Relationship to Insured Coverage Start Date Coverage End Date [employer] Medicare [address] [address] [place] [address] [id number] Mirtha Bajwa Self - patient is the insured Medical (General) History Medical History History ICD Code Allergic rhinitis due to pollen J30.1 Allergic rhinitis due to animal (cat) (d og) hair and dander J30.81 Other allergic rhinitis J30.89 Other chronic allergic conjunctivitis H1 0.45 Other chronic sinusitis J32.8 Shortness of breath R06.02 Essential (primary) hypertension I10 Surgical History Surgery Date(Month/Year) hip replacement 2023 Hospitalization History Reason Date(Month/Year) see above
--- OUTSIDE RECORDS SUMMARY | 2025-03-22 09:12 | XMS_ITS | Clinical Summary ---
Author Organization [facility] Office Center Address [address] [place] [address] Care Team Providers Care Nutrition Educator Name Role Phone Lucie Mathis MD Primary Care Provider [phone] Allergies No known active allergies Medications albuterol HFA (PROVENTIL HFA,VENTOLIN HFA,PROAIR HFA) 90 mcg/actuation inhaler Inhale 2 puffs every 4 (four) hours as needed for wheezing or shortness of breath 021 Active Dulera 200-5 mcg/actuation inhaler Inhale 1 puff as needed (allergies) 021 Active fluticasone propionate (FLONASE) 50 mcg/actuation nasal sprayIndications:Al lergic Rhinitis Administer 2 sprays into each nostril every morning 022 Active cetirizine (ZyrTEC) 10 mg capsuleIndications: Allergic Rhinitis Take 10 mg by mouth every morning 022 Active omeprazole (PriLOSEC) 40 mg capsuleIndications: Symptomatic Gastroesophageal Reflux Disease Take 1 capsule (40 mg total) by mouth as needed Active cholecalciferol (VITAMIN D-3) 50,000 unit capsuleIndications: supplement Take 1 capsule (50,000 Units total) by mouth once a week Takes on Sundays Active diclofenac DR (VOLTAREN) 50 mg EC tabletIndications:P ain Take 1 tablet (50 mg total) by mouth 2 (two) times a day Active lisinopriL (PRINIVIL,ZESTRIL) 20 mg tabletIndications:h ypertension Take 1 tablet (20 mg total) by mouth every morning 023 Active inhalational spacing device spacer as directed Active amLODIPine (NORVASC) 5 mg tabletIndications:h ypertension Take 1 tablet (5 mg total) by mouth every morning 023 Active EPINEPHrine (EpiPen 2-Alan) 0.3 mg/0.3 mL auto-injection syringeIndications: Anaphylaxis Inject 0.3 mL (0.3 mg total) into the muscle as instructed once Active cholecalciferol, vitamin D3, (VITAMIN D3 ORAL)Indications:nelsno pplement Take 1 tablet/capsule by mouth every morning Active amoxicillin 500 mg tablet/capsuleIndic ations:Prophylaxis, Medical TAKE 4 PILL 1 HOUR BEFORE DENTAL APPOINTMENT. 4 tablet/cap tyler 3 025 Active Additional Information Patient taking differently: TAKE 4 PILL 1 HOUR BEFORE DENTAL APPOINTMENT.Last 12/2024, Indications: Prophylaxis, Medical, Informant: Self, Reported on 03/10/2025 MULTIVITAMIN ORAL Take by mouth every morning Active UNABLE TO FIND Take by mouth every morning Med Name: Reacted MultiMin Active docosahexaenoic acid/epa (FISH OIL ORAL) Take by mouth every morning [facility] [place] Active UNABLE TO FINDIndications:Leena nt adn muscle support Take by mouth every morning Med Name: [place] XL Active cyclobenzaprine (FLEXERIL) 10 mg tablet Take 1 tablet (10 mg total) by mouth 3 (three) times a day as needed for muscle spasms 023 2024 Discontinued oxyCODONE (ROXICODONE) 5 mg immediate release tabletIndications:P ain Take 1 tablet (5 mg total) by mouth every 4 (four) hours as needed for pain (2nd line for pain. May repeat in 1 hour for uncontrolled or increasing pain. MAX 2 tablets within 4 hours.) 30 tablet 024 2024 Discontinued traMADoL (ULTRAM) 50 mg tablet Take 1 tablet (50 mg total) by mouth every 6 (six) hours as needed for pain (1st line for pain) 30 tablet 024 2024 Discontinued mupirocin (BACTROBAN) 2 % ointment Apply topically 2 (two) times a day for 5 days APPLY TO NOSTRILS TWICE A DAY FOR 5 DAYS PRIOR TO SURGERY. 22 g 025 2024 Active Problems Problem Noted Date Diagnosed Date Primary osteoarthritis of left knee 12/14/2024 Osteoarthritis of right hip, unspecified osteoarthritis type 07/30/2023 Primary osteoarthritis of right hip 04/29/2023 Allergic rhinitis 11/06/2022 11/06/2022 Allergic rhinitis due to animal hair and dander 11/06/2022 11/06/2022 Allergic rhinitis due to pollen 11/06/2022 11/06/2022 Chronic allergic conjunctivitis 11/06/2022 11/06/2022 Chronic sinusitis 11/06/2022 11/06/2022 Shortness of breath 11/06/2022 11/06/2022 Vitamin D deficiency 11/06/2022 11/06/2022 Abnormal EKG 01/09/2021 Essential hypertension 01/09/2021 Obesity (BMI 35.0-39.9 without comorbidity) 12/13 Cervicalgia 06/03/2016 Ankle injury 03/25/2016 Knee injury 03/25/2016 Encounters Date Type Department Care Team Description 03/10/2025 10:15 AM CDT Lab [facility] [address] [place] [address] Preoperative testing; Primary osteoarthritis of left knee; Disorder of cartilage, unspecified 03/10/2025 10:00 AM CDT Pre-Admission Testing [facility] Pre-Anesthesia Testing [address] [place] [address] Preoperative testing (Primary Dx) 03/01/2025 Orders Only [facility] [address] [facility] Medical Office Building [address] [place] [id number] Rafiq Michelle MD from Last 3 Months Immunizations Immunization Administration Dates Next Due Influenza, Quadrivalent, Hig h Dose, Preservative Free, Intrr 04/28/2021,04/17/2020 Influenza, Quadrivalent, Spl it, Preservative Free, Intramuscular 05/19/2018,04/25/2016,04/18/2015 Influenza, Trivalent, Adjuva nted, Intramuscular 04/25/2019 Pfizer SARS-CoV-2 Monovalent Vaccination (12+ Yrs) PURPLE 04/28/2021,09/07/2020,08/17/2020 Pneumococcal Conjugate PCV 13 12/12/2016 Pneumococcal Polysaccharide PPV23 04/25/2019 ZOSTER LIVE 12/17/2016 Surgical History Surgery Date Site/Laterality Comments WISDOM TOOTH EXTRACTION ORAL SURGERY wisdone teeth FLUORO GUIDED INJECTION HIP RIGHT 07/28/2022 Right COLONOSCOPY 07/13/2020 - 07/12/2021 TOTAL HIP ARTHROPLASTY Medical History Medical History Date Comments GERD (gastroesophageal reflux disease) Gastric reflux Hypertension Lumbar facet arthropathy 07/16/2022 DDD (degenerative disc disease), lumbar 07/16/19 23 Spinal osteophytosis 07/16/2022 Primary osteoarthritis of right hip Anterolisthesis of lumbar spine, grade 1 L4 on L 5 07/11/2022 Lumbar nerve root compressio n, bilateral L4, bilateral L5, right S1 10/09/2022 Sleep apnea Family History Medical History Relation Name Comments Arthritis Father Jaciel Bajwa Family histor y of arthritis - (Added by TW Conv) Cancer Father Jaciel Bajwa Family histor y of malignant neoplasm - (Added by TW Conv) Hypertension Father Jaciel Bajwa Family histor y of hypertension - (Added by TW Conv) Arthritis Mother Jacquelyn Bajwa Family history of arthritis - (Added by TW Conv) Cancer Mother Jacquelyn Bajwa Family history of malignant neoplasm - (Added by TW Conv) Anesthesia problems Neg Hx Relation Name Status Comments Father Jaciel Bajwa Mother Jacquelyn Bajwa Social History Tobacco Use Types Packs/Day Years Used Date Smoking Tobacco: Former Cigarettes 0 1972 - 04/09/1998 Smokeless Tobacco: Never Comments:Patient quit daily smoking in 1997. Patient had been smoking occasionally (couple cigarettes per month for last few years/. Last cigarette use 3 months ago) Alcohol Use Standard Drinks/Week Comments Yes 0 (1 standard drink = 0.6 oz pur e alcohol) AUDIT-C Answer Date Recorded Q1: How often do you have a drink containing alc ohol? Monthly or less 03/10/2025 Q2: How many drinks containi ng alcohol do you have on a typical day when you are drinking? 1 or 2 03/10/2025 Q3: How often do you have si x or more drinks on one occasion? Never 03/10/2025 Personal Safety Answer Date Recorded Have you ever been in or are you currently in a harmful physical or emotional relationship or is someone making you feel afraid or unsafe? 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 Oxygen Saturation 97% 03/10/2025 10: 30 AM CDT Inhaled Oxygen Concentration - - Weight 100.1 kg (220 lb 9.6 oz) 025 10:30 AM CDT Height 162.6 cm (5' 4) 03/10/2025 10:3 0 AM CDT Body Mass Index 37.87 03/10/2025 10:30 AM CDT Plan of Treatment Upcoming Encounters Date Type Department Care Team (Latest Contact Info) Description 03/28/2025 12:45 PM CDT Hospital Encounter [facility] Operating Room [address] [place] [address] Rafiq Michelle MD [address] [place] [address] 03/28/2025 12:45 PM CDT Anesthesia Event [facility] Operating Room [address] [place] [address] Jasmin Mitchell, BRAIDING MACHINE TENDER [address] [facility] [phone] [place] [address] 03/28/2025 12:45 PM CDT - 03/28/2025 2:40 PM CDT Surgery [facility] Operating Room [address] [address] Rafiq Michelle MD [address] [place] [address] ARTHROPLASTY TOTAL KNEE - DEPUY Scheduled Procedures Name Priority Associated Diagnoses Date/Ti me ARTHROPLASTY TOTAL KNEE - DEPUY Primary osteoarthritis of left knee 03/28/2025 12:45 PM CDT Health Maintenance Due Date Last Done Comments Breast Cancer Screening-Mammogram 1955 Colon Cancer Screening-Colonoscopy 1955 Depression Screening 1955 Hepatitis C Screening 1955 Osteoporosis Screening-Bone Density Scan 1955 DTaP/Tdap/Td Vaccine (1 - Tdap) 1964 Hepatitis B Screening 1971 Zoster Vaccine (2 of 3) 02/11/2017 12/17/2016 Well Visit 65+ 2018 Fall Risk Assessment 07/31/2024 07/31/2023 Covid-19 Vaccine (2024-2 6 season) 2025 04/28/2021, 09/07/2020, 08/17/2020 Influenza Vaccine (#1) 2025 , 04/17/2020, 04/12/2020, Additional history exists Pneumococcal vaccine 65+ Completed 024, 05/21/2023, 04/25/2019, Additional history exists Medical Devices Implanted Type Area Forge Operator Helper Device Identifier Shelf Expiration Date Model / Serial / Lot [employer] Cup Acetabular Bi Mentum Od49mm Femoral Proximal Press Fit [id number] - [id number] Implanted:Qty: 1 on 07/30/2023 by Rafiq Michelle MD at [facility] Right: Hip [employer] 01/10/2028 [id number] / / [employer] Liner Acet Hip Size 28 Poly Bi Mentum Altrx 49mm [id number] - [id number] Implanted:Qty: 1 on 07/30/2023 by Rafiq Michelle MD at [facility] Right: Hip [employer] [id number] 11/10/2027 [id number] / / [employer] Actis L107 Mm Collar Hip 6 High Offset Stem Femoral [id number] - [id number] Implanted:Qty: 1 on 07/30/2023 by Rafiq Michelle MD at [facility] Right: Hip [employer] [id number] 02/09/2033 [id number] / / [id number] [employer] Articul/Tahir 28mm Cementless Hip +8.5mm 06/25 Taper Head Femoral Latex Free [id number] - [id number] Implanted:Qty: 1 on 07/30/2023 by Rafiq Michelle MD at [facility] Right: Hip [employer] [id number] 02/10/2028 [id number] / / [id number] Procedures Procedure Name Priority Date/Time Associated Diagnosis Comments EGFR Routine 03/10/2025 11:45 AM CDT Primary osteoarthritis of left knee VITAMIN D 25 HYDROXY Routine 03/10/2025 11:45 AM CDT Primary osteoarthritis of left knee Disorder of cartilage, unspecified COMPREHENSIVE METABOLIC PANEL Routine 03/10/2025 11:45 AM CDT Primary osteoarthritis of left knee CBC WITHOUT DIFFERENTIAL Routine 03/10/2025 11:45 AM CDT Preoperative testing from Last 3 Months Results * eGFR (03/10/2025 11:45 AM CDT) eGFR 84 >=60 mL/min/1. 73 m2 Comment: Interpretive Data Reference Interval Normal >/= 90 mL/min/1.73m2 Mildly decreased* 60 - 89 mL/min/1.73m2 Mildly to moderately decreased 45 - 59 mL/min/1.73m2 Moderately to severely decreased 30 - 44 mL/min/1.73m2 Severely decreased 15 - 29 mL/min/1.73m2 Kidney Failure < 15 mL/min/1.73m2 *Relative to young adult level Estimated glomerular filtration rate is determined by the 2020 CKD-EPI equation recommended by the National Kidney Foundation (A Unifying Approach to GFR Estimation: Recommendations of the NKF-ASK Task Force on Reassessing the Inclusion of Race in Diagnosing Kidney Disease, JASN 202). The CKD-EPI equation should not be used for patients with unstable renal function and has not been validated in children and those over 70. Current interpretive data was last reviewed 2021. Blood 03/10/2025 11:4 5 AM CDT 03/10/2025 11:54 AM CDT Rafiq Michelle MD LAB BLOOD ORDERABLES Merna l Result Performing Organization Address City/[facility]/ZIP Co de Phone Number [facility] [address] [facility] [place] [address] * (ABNORMAL) Vitamin D 25 hydroxy (03/10/2025 11:45 AM CDT) Pathologist [facility] Vitamin D 25-OH 89(H) 30 - 80 ng/mL Blood 03/10/2025 11:4 5 AM CDT 03/10/2025 11:54 AM CDT us Rafiq Michelle MD LAB BLOOD ORDERABLES Merna l Result Performing Organization Address City/[facility]/ZIP Co de Phone Number MARTINE[facility] SANCHEZCH [address] [address] [facility] [place] [address] * CBC without differential (03/10/2025 11:45 AM CDT) WBC 6.04 3.80 - 9.90 K/cumm Hgb 13.6 11.9 - 15.5 g/dL [facility] Hct 41.3 35.6 - 45.5 % [facility] Plt 301 150 - 400 K/cumm [facility] MPV 10.4 9.1 - 12.3 fL [facility] RBC 4.30 3.90 - 5.20 M/cumm [facility] MCV 96.0 81.3 - 96.4 fL [facility] MCH 31.6 27.1 - 33.3 pg [facility] MCHC 32.9 32.3 - 35.7 g/dL [facility] RDW CV 13.1 11.1 - 14.9 % [facility] RDW SD 46.3 35.7 - 48.1 fL [facility] NRBC abs 0.00 0.00 - 0.01 K/cumm [facility] Blood 03/10/2025 11:4 5 AM CDT 03/10/2025 11:54 AM CDT us Jasmin Mitchell NP LAB BLOOD ORDERABLES Final Re sult [facility]INEZ SANCHEZ [address] [facility]. Department [place] [address] * (ABNORMAL) Comprehensive metabolic panel (03/10/2025 11:45 AM CDT) Sodium 142 135 - 145 mmol/L Potassium, pl 4.4 3.3 - 4.9 mmol/L [facility] Chloride 107 97 - 110 mmol/L [facility] CO2 23 22 - 32 mmol/L [facility] Anion gap 12 2 - 15 mmol/L [facility] BUN 30(H) 6 - 25 mg/dL [facility] Creatinine 0.76 0.60 - 1.10 mg/dL [facility] Glucose 94 70 - 199 mg/dL [facility] Comment: Interpretive Data Fasting glucose >/= 126 mg/dl is diagnostic for diabetes. Fasting is defined as no caloric intake for at least 8 hours. Fasting glucose between 100 mg/dl to 125 mg/dl is diagnostic of prediabetes. In a patient with classic symptoms of hyperglycemia or hyperglycemic crisis, a random glucose >/= 200 mg/dl is diagnostic for diabetes. In the absence of unequivocal hyperglycemia, results should be confirmed by repeat testing. The classification and Diagnosis of Diabetes Diabetes Care 2021; 46: S19-S40. Current interpretive data was last revised 2022. Calcium 9.8 8.5 - 10.3 mg/dL [facility] Bilirubin, total 0.4 0.1 - 1.2 mg/dL [facility] Protein, pl 6.7 6.5 - 8.5 g/dL [facility] Albumin 4.4 3.5 - 5.0 g/dL [facility] Alk phos 86 40 - 130 Units/L [facility] ALT 32 7 - 45 Units/L [facility] AST 22 10 - 45 Units/L [facility] Blood 03/10/2025 11:4 5 AM CDT 03/10/2025 11:54 AM CDT us Rafiq Michelle MD LAB BLOOD ORDERABLES Merna willett Result [facility] [address] [facility]. Department [place] [address] from Last 3 Months Insurance [employer] Advance Directives For more information, please contact: [phone] Documents on File Type Date Recorded Patient Paper Sorter Expl anation ADVANCE DIRECTIVE 08/04/2023 11:46 AM SARANYA R [facility] [employer] * Full Code (Latest Code Status on File) Date Activated Date Inactivated Comments 07/30/2023 5:32 PM 07/31/2023 4:25 PM Care Teams Nutrition Educator Relationship Specialty Start Date End Date Lucie Mathis MD PCP - General Family Medicine 12/18/20
== END 2025-03-22 08:41 | disposition home or self-care (01) ==
LOC: ANHFOHIMG 08:44
PROVIDERS: PCP Family Medicine; Visit Provider Family Medicine
DX: Z12.31 Encounter for screening mammogram for malignant neoplasm of breast (principal)
CPT/HCPCS: 77063; 77067